=== PATIENT | female | born 1935 | race Caucasian/White ===

== ENCOUNTER → 2016-08-01 | Outpatient (CLI) | payer MEDICARE, OTHER | LOC: LAB.O 13:22 | PROVIDERS: ATTEND Internal Medicine | DX: E03.9 Hypothyroidism, unspecified (principal) ==

== ENCOUNTER 2017-01-20 15:33 | Emergency (ER) | payer MEDICARE, OTHER ==
[2017-01-20 15:57] VITALS: TEMP 97.7
--- NOTE | 2017-01-20 16:16 | ED.PDOC ---
History of Present Illness - General Chief Complaint: GI Problem Stated Complaint: n/v/d dizziness Time Seen by Provider: 01/20/17 15:47 Source: patient, family Exam Limitations: no limitations - History of Present Illness Initial Comments: Patient presents with abdominal pain, N/V/D since yesterday. It started sometime in the late morning and the cleared up by the late afternoon, then started again in the evening. She has it still today. The abdominal pain is supraumbilical, constant but intermittent in intensity, and lessens after a bm or vomiting. Diarrhea is non-bloody. No fever. No similarly sick contacts. Timing/Duration: 24 hours Severity: moderate Improving Factors: nothing Worsening Factors: nothing Associated Symptoms: denies symptoms Allergies/Adverse Reactions: Allergies Sulfur Allergy (Verified 01/20/17 16:00) Home Medications: Ambulatory Orders Ondansetron [Zofran Odt] 4 mg PO Q6HRS #10 tab 01/20/17 Review of Systems - Review of Systems Constitutional: States: no symptoms reported EENTM: States: no symptoms reported Respiratory: States: no symptoms reported Cardiology: States: no symptoms reported Gastrointestinal/Abdominal: States: see HPI Genitourinary: States: no symptoms reported Musculoskeletal: States: no symptoms reported Skin: States: no symptoms reported Neurological: States: no symptoms reported Endocrine: States: no symptoms reported Hematologic/Lymphatic: States: no symptoms reported Past Medical History (General) - Patient Medical History Hx Seizures: No Hx Dementia: Yes Hx Cardiac Disorders: Yes Hx Congestive Heart Failure: No Hx Diabetes: No Surgical History: cholecystectomy, coronary bypass surgery Family Medical History - Family History Mother Family History: Unknown Physical Exam - Physical Exam General Appearance: Alert Respiratory: lungs clear Cardiovascular/Chest: normal peripheral pulses, regular rate, rhythm Gastrointestinal/Abdominal: normal bowel sounds, non tender, soft Back Exam: no CVA tenderness Skin Exam: normal color Progress - Progress Progress: 01/20/17 16:57 Reassuring labs. Cardiac enzymes negative. EKG showed no ST changes nor T wave inversions. Patient received one liter NS IV. She did not vomit while in the ER Discharged with zofran. Laboratory Tests 01/20/17 01/20/17 01/20/17 16:00 16:00 16:00 WBC 5.8 RBC 3.89 L Hgb 11.4 L Hct 33.8 L MCV 86.9 MCH 29.3 MCHC 33.6 RDW 15.2 H Plt Count 146 MPV 8.2 Absolute Neuts (auto) 5.00 Absolute Lymphs (auto) 0.40 L Absolute Monos (auto) 0.30 Absolute Eos (auto) 0.00 Absolute Basos (auto) 0.00 Neutrophils % 86.2 H Lymphocytes % 7.4 L Monocytes % 5.5 Eosinophils % 0.5 L Basophils % 0.4 Sodium 135 Potassium 3.6 Chloride 103 Carbon Dioxide 25 Anion Gap 10.6 L BUN 20 H Creatinine 0.80 BUN/Creatinine Ratio 25.0 H Random Glucose 126 H Serum Osmolality 274.2 L Calcium 8.3 L Total Bilirubin 0.8 AST 79 H ALT 32 Alkaline Phosphatase 74 Creatine Kinase CK-MB (CK-2) CK-MB (CK-2) % Troponin I Serum Total Protein 6.1 L Albumin 3.4 Globulin 2.7 Albumin/Globulin Ratio 1.3 Lipase 34 Urine Color Urine Appearance Urine pH Ur Specific [place] Urine Protein Urine Glucose (UA) Urine Ketones Urine Blood Urine Nitrite Urine Bilirubin Urine Urobilinogen Ur Leukocyte Esterase Urine RBC Urine WBC Ur Epithelial Cells Amorphous Sediment Urine Bacteria Urine Mucus 01/20/17 01/20/17 16:00 16:00 WBC RBC Hgb Hct MCV MCH MCHC RDW Plt Count MPV Absolute Neuts (auto) Absolute Lymphs (auto) Absolute Monos (auto) Absolute Eos (auto) Absolute Basos (auto) Neutrophils % Lymphocytes % Monocytes % Eosinophils % Basophils % Sodium Potassium Chloride Carbon Dioxide Anion Gap BUN Creatinine BUN/Creatinine Ratio Random Glucose Serum Osmolality Calcium Total Bilirubin AST ALT Alkaline Phosphatase Creatine Kinase 36 CK-MB (CK-2) 2.1 CK-MB (CK-2) % Not Reportable Troponin I < 0.02 Serum Total Protein Albumin Globulin Albumin/Globulin Ratio Lipase Urine Color Yellow Urine Appearance Sl cloudy Urine pH 5.5 Ur Specific [place] 1.015 Urine Protein Negative Urine Glucose (UA) Negative Urine Ketones Negative Urine Blood Negative Urine Nitrite Negative Urine Bilirubin Negative Urine Urobilinogen 0.2 Ur Leukocyte Esterase Negative Urine RBC 0-1 Urine WBC 1-3 Ur Epithelial Cells 30-40 Amorphous Sediment 1+ Urine Bacteria 2+ H Urine Mucus Small Departure - Departure Clinical Impression: Gastroenteritis Disposition: Discharge to Home or Self Care Condition: Good Departure Forms: ED Discharge - Pt. Copy, Patient Portal Self Enrollment Diet: resume usual diet Activity: increase activity as tolerated Referrals: Jasper Rome MD [Family Provider] - 1-2 Weeks Prescriptions: Ondansetron [Zofran Odt] 4 mg PO Q6HRS #10 tab Home Medications: Ambulatory Orders Ondansetron [Zofran Odt] 4 mg PO Q6HRS #10 tab 01/20/17
[2017-01-20 17:29] VITALS: BP 154/64; O2SAT 99
== END 2017-01-20 17:12 | disposition home or self-care (01) ==
LOC: ER 15:33
DX: K52.9 Noninfective gastroenteritis and colitis, unspecified (principal); F03.90 Unspecified dementia, unspecified severity, without behavioral disturbance, psychotic disturbance, mood disturbance, and anxiety; I51.89 Other ill-defined heart diseases; Z95.1 Presence of aortocoronary bypass graft; Z88.2 Allergy status to sulfonamides

== ENCOUNTER → 2018-05-24 | Outpatient (CLI) | payer MEDICARE, OTHER | LOC: GMAJ 10:27 | PROVIDERS: ATTEND Family Medicine | DX: E03.9 Hypothyroidism, unspecified (principal) ==

== ENCOUNTER 2018-11-06 15:04 | Emergency (ER) | payer MEDICARE, OTHER ==
--- NOTE | 2018-11-06 15:58 | RAD ---
Study: Single Frontal Radiograph of the Chest. Indication:WEAKNESS, AMS Comparison: None. Impression: Median sternotomy wires. Mild cardiomegaly without failure. Lungs clear. Osteopenia. If this is a new finding, DEXA scan recommended as well as evaluation for possible osteoporosis treatment. Electronically signed by: Luca Dowling MD 11/06/2018 3:56 PM CDT
[2018-11-06] MEDS ORDERED: SODIUM CHLORIDE 0.9% 500ML 500 ML IVS ONE (16:12)
--- NOTE | 2018-11-06 17:18 | ED.PDOC ---
History of Present Illness - General Chief Complaint: General Stated Complaint: weakness, diarrhea Time Seen by Provider: 11/06/18 15:36 Source: patient, family Exam Limitations: no limitations - History of Present Illness Initial Comments: HX MAINLY DAUGHTER/[employer]EST [employer] DISP[employer]ER. PT HAD UTI LAST WEEK. TX BY PCP WITH ROCEPHIN X 3. DEVELOPED DIARRHEA X 4 D, GOT DEHYDRATED. TODAY HER DAUGHTER FOUND HER LETHARGIC, COULDN'T STAND (AMBULATES AT BASELINE), WEAK DISORIENTED. BROUGHT TO ER. DAUGHTER STATES HER MENTATION IMPROVED IN ER. H/O MILD VASCULAR DEMENTIA. Allergies/Adverse Reactions: Allergies Sulfur Allergy (Verified 01/20/17 16:00) Home Medications: Ambulatory Orders Aspirin [Aspirin EC Low Dose] 81 mg PO DAILY 11/06/18 Estradiol 0.5 mg PO DAILY 11/06/18 Irbesartan 300 mg PO DAILY 11/06/18 Levothyroxine Sodium 150 mg PO DAILY 11/06/18 Metoprolol Succinate [Metoprolol Succinate ER] 50 mg PO LUCITA-OTH-DAY 11/06/18 Omeprazole 20 mg PO DAILY 11/06/18 Sertraline HCl [Zoloft] 25 mg PO DAILY 11/06/18 Review of Systems - Review of Systems Constitutional: Denies: chills, fever EENTM: Denies: blurred vision, nose congestion Respiratory: Denies: cough, short of breath Cardiology: Denies: chest pain, palpitations Gastrointestinal/Abdominal: Denies: abdominal pain, nausea Genitourinary: Denies: dysuria, frequency Musculoskeletal: Denies: joint swelling, neck pain Skin: States: no symptoms reported Neurological: Denies: headache, numbness, paresthesia Endocrine: Denies: excessive sweating, flushing Hematologic/Lymphatic: States: no symptoms reported All other Systems: Reviewed and Negative Past Medical History (General) - Patient Medical History Hx Seizures: No Hx Dementia: Yes - vascular dementia Hx Cardiac Disorders: Yes Hx Congestive Heart Failure: No Hx Hypertension: Yes Hx Diabetes: No Hx Cancer: No Hx Hepatitis C: No Surgical History: appendectomy, cholecystectomy, coronary bypass surgery, Hysterectomy - Vaccination History Hx Tetanus, Diphtheria Vaccination: Yes Hx Influenza Vaccination: Yes Hx Pneumococcal Vaccination: Yes Immunizations Up to Date: Yes - Social History Hx Tobacco Use: No Hx Alcohol Use: Yes - wine Hx Substance Use: No Hx Substance Use Treatment: No Hx Depression: No - Female History Patient is a Female of Child Bearing Age (10 -59 yrs old): No Family Medical History - Family History Mother Family History: Unknown Physical Exam - Physical Exam General Appearance: Alert, No apparent distress Eye Exam: bilateral normal Ears, Nose, Throat: hearing grossly normal, normal ENT inspection Neck: non-tender, full range of motion Respiratory: chest non-tender, lungs clear Cardiovascular/Chest: normal peripheral pulses, regular rate, rhythm Peripheral Pulses: radial,right: 1+, radial,left: 1+, dorsalis pedis,right: 1+, dorsalis pedis,left: 1+, posterior tibialis,right: 1+, posterior tibialis,left: 1+ Gastrointestinal/Abdominal: non tender, soft Back Exam: normal inspection, no CVA tenderness Extremity: normal range of motion, non-tender, other - CHRONIC BLE EDEMA PER PT AND DAUGHTER, UNCHANGED. 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 CBC ELEV WBC 18.5 AND NEUTROPHILS 17. CMP - K+ 3.4 . LFT'S VERY ELEVATED: AST, ALT, ALK PHOS. I AM ORDERING A HEPATITIS PANEL AND LIVER U/S TO FURTHER EVALUATE. PER MED REC REVIEW, SHE IS NOT ON ANY LIVER-TOXIC DRUGS SUCH A STATIN. UA PENDING. 11/06/18 17:45 I LEARNED THAT HEPATITIS A/B/C IS A SEND OUT AND WE DO NOT HAVE U/S AFTER 5 PM, THUS I WILL HAVE HER FOLLOW UP WITH HER PCP, DR. MORGAN, TO SEE IF THE LFT'S NORMALIZE. EXPECTANT MANAGEMENT FOR NOW. 11/06/18 18:19 WITH DIARRHEA, ELEV WBC AND LFTS, I SUSPECT ACUTE VIRAL GI IFXN. I EXPLAINED TO PT AND DAUGHTER THE NEED TO DRINK > 64 OZ PER DAY AND TO F/U W/ PCP IN 1-2 WKS TO ENSURE LFT'S START TO TREND TOWARD IMPROVEMENT. I SUSPECT HER DIARRHEA WAS NOT FROM THE UTI ABX BUT WAS A SEPARATE IFXN OF GI TRACT. - EKG/XRAY/CT EKG: Sinus, no ST T wave changes Departure - Departure Clinical Impression: Viral gastroenteritis, Dehydration, moderate, General weakness, Ketonuria, Elevated LFTs, Neutrophilic leukocytosis, Hypokalemia Disposition: Discharge to Home or Self Care Condition: Good Departure Forms: ED Discharge - Pt. Copy, Patient Portal Self Enrollment Instructions: Viral Gastroenteritis, Adult (DC) Diet: other - ADVANCE DIET TOLERATED. Activity: increase activity as tolerated Referrals: Mason Morgan MD [Primary Care Provider] - 1-2 Weeks Home Medications: Ambulatory Orders Aspirin [Aspirin EC Low Dose] 81 mg PO DAILY 11/06/18 Estradiol 0.5 mg PO DAILY 11/06/18 Irbesartan 300 mg PO DAILY 11/06/18 Levothyroxine Sodium 150 mg PO DAILY 11/06/18 Metoprolol Succinate [Metoprolol Succinate ER] 50 mg PO LUCITA-OTH-DAY 11/06/18 Omeprazole 20 mg PO DAILY 11/06/18 Sertraline HCl [Zoloft] 25 mg PO DAILY 11/06/18 Additional Instructions: Please drink at least 64 ounces of fluid per day. Please see your regular doctor in 1-2 weeks to ensure your liver tests start to trend toward improvement.
[2018-11-06 18:36] VITALS: BP 138/75; TEMP 98.3; O2SAT 96
== END 2018-11-06 18:36 | disposition home or self-care (01) ==
LOC: ER 15:04
DX: A08.4 Viral intestinal infection, unspecified (principal); E86.0 Dehydration; R82.4 Acetonuria; R79.89 Other specified abnormal findings of blood chemistry; D72.828 Other elevated white blood cell count; E87.6 Hypokalemia; F01.50 Vascular dementia, unspecified severity, without behavioral disturbance, psychotic disturbance, mood disturbance, and anxiety; I51.9 Heart disease, unspecified; I10 Essential (primary) hypertension; Z90.49 Acquired absence of other specified parts of digestive tract; Z79.82 Long term (current) use of aspirin; Z79.899 Other long term (current) drug therapy; Z88.2 Allergy status to sulfonamides
CPT/HCPCS: 36415; 71045; 80053; 81001; 82550; 82553; 84484; 85025; 93005; J7040